=== PATIENT | male | born 1950 | race Caucasian/White ===

== ENCOUNTER → 2016-11-28 | Outpatient (CLI) | payer OTHER ==
--- NOTE | 2016-11-28 11:54 | US ---
Bilateral Duplex/Doppler Carotid Sonography History: Carotid atherosclerosis. Comparison: None available. Technique: The cervical portions of the carotid and vertebral arteries were imaged and interrogated by color and pulsed Duplex/Doppler. Spectral analysis was performed. Findings Right Carotid: Right CCA peak systolic velocity = 54 cm/sec Right ECA peak systolic velocity = 112 cm/sec Right ICA peak systolic velocity = 108 cm/sec Right ICA/CCA systolic velocity ratio = 2.0 Velocities correlate to less than 50% diameter stenosis of the origin of the right internal carotid a rtery with respect to the normal distal internal carotid artery. There is mild calcified plaque invol ving the right carotid bulb and proximal right internal carotid artery. Left Carotid: Left CCA peak systolic velocity = 68 cm/sec Left ECA peak systolic velocity = 122 cm/sec Left ICA peak systolic velocity = 107 cm/sec Left ICA/CCA systolic velocity ratio = 1.6 Velocities correlate to less than 50% diameter stenosis of the origin of the left internal carotid ar chloe with respect to the normal distal internal carotid artery. There is mild calcified plaque involv ing the left carotid bulb and proximal left internal carotid artery. Vertebral Arteries: Antegrade flow is shown by pulsed Doppler of each vertebral artery. Impression: No hemodynamically significant stenosis by systolic velocity criteria. Measurement of carotid stenosis is based on velocity parameters that correlate the residual internal carotid diameter with [place] Symptomatic Carotid Endarterectomy Trial (NASCET) based stenosis levels.
== END ==
LOC: FIMAGING 10:40
PROVIDERS: ATTEND Surgery
DX: Z03.89 Encounter for observation for other suspected diseases and conditions ruled out (principal)

== ENCOUNTER → 2018-02-15 | Outpatient (CLI) | payer OTHER | LOC: BHFA 15:30 | PROVIDERS: ATTEND Internal Medicine Cardiovascular Disease | DX: I73.9 Peripheral vascular disease, unspecified (principal) ==

== ENCOUNTER → 2018-05-21 | Outpatient (CLI) | payer OTHER | LOC: FIMAGING 12:39 | PROVIDERS: ATTEND Internal Medicine Cardiovascular Disease | DX: I73.9 Peripheral vascular disease, unspecified (principal) ==

== ENCOUNTER → 2018-05-21 | Outpatient (CLI) | payer OTHER | LOC: FIMAGING 12:42 | PROVIDERS: ATTEND Internal Medicine Cardiovascular Disease | DX: I74.3 Embolism and thrombosis of arteries of the lower extremities (principal); I73.9 Peripheral vascular disease, unspecified ==

== ENCOUNTER → 2019-01-19 | Outpatient (CLI) | payer OTHER | LOC: BHFA 15:30 | PROVIDERS: ATTEND Internal Medicine Cardiovascular Disease | DX: I73.9 Peripheral vascular disease, unspecified (principal) ==

== ENCOUNTER → 2019-02-21 | Outpatient (CLI) | payer OTHER ==
[~2019-02-21] MED LIST: IOPAMIDOL (ISOVUE 370) 100 ML BTL IV ONE
== END ==
LOC: FIMAGING 11:33
PROVIDERS: ATTEND Surgery
DX: I70.203 Unspecified atherosclerosis of native arteries of extremities, bilateral legs (principal); I70.92 Chronic total occlusion of artery of the extremities; I70.1 Atherosclerosis of renal artery; I74.3 Embolism and thrombosis of arteries of the lower extremities; Z94.0 Kidney transplant status
CPT/HCPCS: 75635; Q9967